=== PATIENT | female | born 1970 | race Caucasian/White ===

== ENCOUNTER 2025-02-16 14:33 | Emergency (ER) | payer OTHER, SELFPAY ==
--- OUTSIDE RECORDS SUMMARY | 2025-02-16 14:40 | XMS_ITS | Clinical Summary ---
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 Active Diphenhydramine-AP AP, sleep, (TYLENOL PM EXTRA STRENGTH PO) Take by mouth nightly as needed. Active predniSONE (DELTASONE) 20 MG Tablet Take 1 tablet daily for 5 days then taper the dose to half tablet for 5 days, then half a tablet every other day until finish the prescription. 20 Tab 0 04/07/19 17 Active Additional Information Patient not taking.Reported on 01/05/2017 guaiFENesin-codein e (CHERATUSSIN AC) 100-10 MG/5ML Syrup Take 5 mL by mouth nightly as needed for Cough. 120 mL 0 04/07/19 17 Active Additional Information Patient not taking.Reported on 01/05/2017 guaiFENesin (MUCINEX) 600 MG TABLET SR 12 HRIndications:Acut e non-recurrent sinusitis, unspecified location Take 1 Tab by mouth 2 times daily. 180 Tab 3 05/19/19 17 Active Additional Information Patient not taking.Reported on 01/05/2017 fluticasone-salmet aramis (ADVAIR DISKUS) 250-50 MCG/DOSE AEROSOL POWDER, BREATH ACTIVATED take 1 Puff by inhalation 2 times daily. 60 Each 04/13/20 18 Active atorvastatin (LIPITOR) 20 MG TabletIndications: Mixed hyperlipidemia Take 1 Tab by mouth daily. 90 Tab 07/09/19 18 Active montelukast (SINGULAIR) 10 MG TabletIndications: Bronchitis with asthma, acute Take 1 Tab by mouth daily. 90 Tab 07/09/19 18 Active albuterol (PROAIR HFA) 108 (90 Base) MCG/ACT Aerosol SolutionIndication s:Mild persistent asthma without complication take 2 Puffs by inhalation every 4 hours as needed for Wheezing. 1 Inhaler 07/09/19 Active methylPREDNISolone (MEDROL DOSPACK) 4 MG Tablet Therapy Pack Follow instructions on pack, take with food; Give one pack 1 Dose Pack 07/09/19 Active promethazine-dextr omethorphan (PROMETHAZINE-DM) 6.25-15 MG/5ML Syrup Take 5 mL by mouth every 4 hours as needed for Cough. 240 mL 07/09/19 Active Active Problems Problem Noted Date Diagnosed Date Asthma Immunizations Immunization Administration Dates Next Due Influenza Vaccine, Quadrivalent, PF 01/05/2017 Pneumococcal Vaccine Adult - 23 Valent 7 Social History Tobacco Use Types Packs/Day Years Used Date Smoking Tobacco: Former Cigarettes 1 Q uit: 10/26/2016 E-Vapor with Nicotine Smokeless Tobacco: Never Tobacco Cessation:Counseling Given: Yes Alcohol Use Standard Drinks/Week Comments No 0 (1 standard drink = 0.6 oz pur e alcohol) Sexually Active Control Partners Comments Not Currently Comments No Sex and Gender Information Value Date Recorded Sex Assigned at Not on file Legal Sex Female 4:44 PM [employer] Gender Identity Not on file Sexual Orientation Not on file Last Filed Vital Signs Vital Sign Reading Time Taken Comments Blood Pressure 137/82 02/12/2023 12:50 AM [employer] Pulse 88 02/12/2023 12:50 AM [employer] Temperature 36.6 C (97.9 F) 02/12/2023 12:50 AM [employer] Respiratory Rate 16 02/12/2023 12:50 AM [employer] Oxygen Saturation 95% 02/12/2023 12:50 AM [employer] Inhaled Oxygen Concentration - - Weight 113.4 kg (250 lb) 02/11/2023 11:23 PM [employer] Height 162.6 cm (5' 4) 02/11/2023 11:23 PM [employer] Body Mass Index 42.91 02/11/2023 11:23 PM [employer] Plan of Treatment Health Maintenance Due Date Last Done Comments Hepatitis C Virus (HCV) Screening 1968 Varicella Immunization (1 of 2 - 13+ 2-dose series) 1981 Hepatitis B Immunization (1 of 3 - 19+ 3-dose series) 10/10/1987 Pap Smear 1989 Cervical Cancer Screening (CCS) 1998 HPV/Cotest 1998 Cologuard 2013 Colonoscopy 2013 Colorectal Cancer Screening 2013 Immunochemical Fecal Occult Blood 2013 Pneumococcal Immunization (5 0+ years) (2 of 2 - PCV) 01/05/2018 01/05/2017 Respiratory Syncytial Virus (RSV) Immunization (Adult) (1 - Risk 50-74 years 1-dose series) 2018 Zoster Immunization (1 of 2) 2018 Influenza Immunization (#1) 11/26/202412/26, 02/13/2015 SARS-COV-2 Immunization ( - season) 2024 Mammogram Discontinued 09/12/2014 TdaP Immunization Completed 02/13/2015 Pneumococcal Immunization Combined Discontinued 01/05/2017 Human Papillomavirus (HPV) Immunization Aged Out No longer eligible based on patient's age to complete this topic Meningococcal Immunization (ACWY) Aged Out No longer eligible based on patient's age to complete this topic Rotavirus Immunization Aged Out No lo nger eligible based on patient's age to complete this topic Procedures Procedure Name Priority Date/Time Associated Diagnosis Comments NATALIE SCREENING BILATERAL DIGI OLAYINKA W CAD Routine 09/12/2014 from Last 3 Months or Most Recently Relevant to Health Maintenance Results * NATALIE SCREENING BILATERAL DIGITAL W CAD (09/12/2014) Anatomical Region Laterality Modality breast Bilateral Other us Unknown Provider IMG MAMMO ORDERABLES Final Resu lt from Last 3 Months or Most Recently Relevant to Health Maintenance Insurance [employer] Care Teams [employer] Commanding Officer Relationship Specialty Start Date End Date Provider, None [place] PCP - General 09/11/20
--- OUTSIDE RECORDS SUMMARY | 2025-02-16 14:40 | XMS_ITS | Data Portability ---
[facility] Address [address] [place] [address] Assessment No assessment recorded. Plan of Treatment Reminders Order Date Submit Date Provider Last Modified By Organization Details Last Modified Time Details Appointments None recorded. 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-PCR, respiratory specimen - [place] @ 1p 2019 020 [facility] (Lab), [address] [place], [address], 0 16:17:35 test, urine 2018 019 [email or web address] 23 In-Office Order, Internal Use Only DO Not Attach Compendium DO Not Attach Compendium, Do Not Delete/merge, [id number] 9 09:20:34 pap, LB + HPV mRNA E6/E7 + reflex HPV (16+18+45) 2018 019 [email or web address] 23 [facility], [address], [place], [address], 9 10:02:27 test, urine 2018 019 [email or web address] 23 In-Office Order, Internal Use Only DO Not Attach Compendium DO Not Attach Compendium, Do Not Delete/merge, [id number] 9 12:34:51 rapid strep group A, throat 2015 016 dbogue In-Office Order, Internal Use Only DO Not Attach Compendium DO Not Attach Compendium, Do Not Delete/merge, [id number] 6 09:54:44 Referral gastroenter ologist referral 2018 019 john Manley MD, [address] [facility] [address], [place], [address], 0 11:15:09 Procedures None recorded. Surgeries None recorded. Imaging MAMMO, screening, digital, bilateral 2018 019 earnest 23 [facility] (Radiology), [address] [facility] , [place], [address], 9 10:02:27 Medication Orders Mirena 21 mcg/24 hr (up to 8 years) 52 mg intrauterin e device 2018 019 earnest 23 [facility], [address] [place], [address], 9 09:20:34 Medrol (Santo) 4 mg tablets in a dose pack 2015 016 [email or web address] 7 [facility], [address] [place], [address], 9 09:06:51 ProAir HFA 90 mcg/actuati on aerosol inhaler 2015 016 dbogue [facility], [address] [place], [address], 6 09:54:44 Patient TargetsNo targets recorded. Patient Instructions Encounter Date Encounter Id Patient Instructions Last Modified By Organization Details Last Modified Time 07/03/2015 [id number] upper respirator y infection (cold): care instructions dbogue Not available 07/03/2015 09:54:44 07/10/2015 [id number] bronchitis: care instructions dbogue Not available 07/10/2015 09:59:24 12/04/2018 [id number] body mass index: care instructions [email or web address] Not available 12/04/2018 10:02:17 learning about healthy weight [email or web address] Not available 12/04/2018 10:02:17 learning about breast cancer screening [email or web address] Not available 12/04/2018 10:02:17 12/19/2018 [id number] intrauterine device (IUD) insertion: care instructions [email or web address] Not available 12/19/2018 09:20:34 11/19/2019 [id number] Reviewed the following recommendations: -Stay home and separate from others as much as possible. -Monitor your symptoms and seek medical attention for trouble breathing, persistent chest pain, confusion, or bluish lips or face. -Wear a mask if you must be around other people. -Wash your hands often for 20 seconds with soap and water and clean high-touch surfaces daily -You may discontinue home isolation if your symptoms are improving, it has been 10 days since symptoms started, and you have been fever free for at least 3 days. j [email or web address] Not available 11/19/2019 12:33:10 Reason for Referral Sample Box Maker Referral for Screening for malignant neoplasm of colon Referring Physician: Iris Cordero, PROCESS DEVELOPMENT TECHNICIAN, Encounter Date: 12/04/2018 Results Created Date Observation Date Name Description Value Unit Range Abnormal Flag Note LastModifiedBy Organization Detail LastModifiedTime 07/03/19 16 07/03/2015 rapid strep group A, throa t Strep negati ve Not Available In-Office Order Internal Use Only DO Not Attach Compendium DO Not Attach Compendium, Do Not Delete/merge, [id number] 07/03/2015 09:35:31 12/05/1912/06/2018 pap, IG + HPV mRNA E6/E7 + refle x HPV (16+1 8+45) clinical information: normal Infor matio n not provi ded Not Available [facility] [address], [place], [address], 12/06/2018 15:43:35 12/05/1912/06/2018 pap, IG + HPV mRNA E6/E7 + refle x HPV (16+1 8+45) LMP: normal INFOR MATIO N NOT PROVI DED Not Available [facility] [address] [place], [address], 12/06/2018 15:43:35 12/05/19 19 12/06/2018 pap, IG + HPV mRNA E6/E7 + refle x HPV (16+1 8+45) prev. Pap: normal INFOR MATIO N NOT PROVI DED Not Available [address] [place], [address], 12/06/2018 15:43:35 12/05/19 19 12/06/2018 pap, IG + HPV mRNA E6/E7 + refle x HPV (16+1 8+45) prev. BX: normal INFOR MATIO N NOT PROVI DED Not Available [facility] [address] [place], [address], 12/06/2018 15:43:35 12/05/1912/06/2018 pap, IG + HPV mRNA E6/E7 + refle x HPV (16+1 8+45) source: normal Infor matio n not provi ded Not Available [address], [place], [address], 12/06/2018 15:43:35 12/05/1912/06/2018 pap, IG + HPV mRNA E6/E7 + refle x HPV (16+1 8+45) statement of adequacy: normal Satis facto ry for evalu ation . Endoc ervic al/tr ansfo rmati on zone compo nent prese nt. Age and/o r menst rual statu s not provi ded Not Available [address], [place], [address], 12/06/2018 15:43:35 12/05/1912/06/2018 pap, IG + HPV mRNA E6/E7 + refle x HPV (16+1 8+45) interpretati on/result: normal Negat rama for intra epith elial lesio n or murtaza damico . Not Available [address] [address] [place], [address], 12/06/2018 15:43:35 12/05/1912/06/2018 pap, IG + HPV mRNA E6/E7 + refle x HPV (16+1 8+45) comment: normal This Pap test has been evalu ated with [employer] . Not Available [address] [address] [place], [address], 12/06/2018 15:43:35 12/05/19 19 12/06/2018 pap, IG + HPV mRNA E6/E7 + refle x HPV (16+1 8+45) cytotechnolo gist: normal YQ, CT( CP) CT scree tabatha locat ion: [address] [address] [place] [address] Not Available [address] [address] [place], [address], 12/06/2018 15:43:35 12/05/1912/06/2018 pap, IG + HPV mRNA E6/E7 + refle x HPV (16+1 8+45) comment EXPLA NATADAN Y NOTE: The Pap is a scree tabatha test for cervi jenni cance r. It is not a diagn ostic test and is subje ct to false negat rama and false posit rama resul ts. It is most relia ble when a satis facto ry sampl e, regul kimmy obtai renée, is submi tted with relev ant clini jenni findi ngs and histo ry, and when the Pap resul t is evalu ated along with histo sary and curre nt clini jenni infor matio n. Not Available [address] [address] [place], [address], 12/06/2018 15:43:35 12/05/1912/06/2018 pap, IG + HPV mRNA E6/E7 + refle x HPV (16+1 8+45) HPV MRNA E6/E7 Not Detect ed not detect ed normal This test was perfo rmed using the APTIM A HPV Assay ([employer] . This assay detec ts E6/E7 viral messe nger RNA (mRNA ) from 14 high- risk HPV types (16,1 8,31, 33,35 ,39,4 5,51, 52,56 ,58,5 9,66, 68). The sandar tical perfo rmanc e karmen cteri stics of this assay have been deter mined by [employer]. The modif icati ons have not been clear ed or appro krystyna by the FDA. This assay has been valid ated pursu ant to the CLIA regul ation s and is used for clini jenni purpo ses. Not Available [facility] [address] [place], [address], 12/06/2018 15:43:35 12/05/19 19 12/04/2018 pregn gladys test, urine HCG negati ve Not Available In-Office Order Internal Use Only DO Not Attach Compendium DO Not Attach Compendium, Do Not Delete/merge, [id number] 12/04/2018 10:10:38 12/20/19 19 12/19/2018 pregn gladys test, urine HCG negati ve Not Available In-Office Order Internal Use Only DO Not Attach Compendium DO Not Attach Compendium, Do Not Delete/merge, [id number] 12/19/2018 08:58:17 11/19/19 20 11/19/2019 SARS CoV 2 RNA (COVI D-19) , QL, surgical supply assistant-P CR, respi rator y speci men sars - cov - 2 PCR NON DETECT ED mL Not Available [facility] (Lab) [address] [place] [address], [address], 11/23/2019 16:17:35 11/19/19 20 11/19/2019 SARS CoV 2 RNA (COVI D-19) , QL, surgical supply assistant-P CR, respi rator y speci men [email or web address] COMME NTS: A negat rama resul t does not precl ude SARS- CoV-2 infec tion and shoul d not be used as the sole basis for treat ment or other patie nt manag ement decis ions. Negat rama resul ts must be combi renée with clini jenni obser vatio ns, patie nt histo ry, and epide miolo gical infor matio n Perfo rmanc e karmen cteri stics for the TaqPa th COVID -19 Combo , Real- time PCR Diagn ostic test have been deter mined by the [facility] daniel magdaleno and are incor porat ed as part of the Emerg ency Use Autho pedrito ion. Not Available [facility] (Lab) [address] [place], [address], 11/23/2019 16:17:35 11/19/19 20 11/19/2019 SARS CoV 2 RNA (COVI D-19) , QL, surgical supply assistant-P CR, respi rator y speci men covididph3 Provi marianne and patie nt fact sheet s are avail able at: https ://ww w.fda .gov/ medic al-de vices /samantha gency -situ ation s-med ical- devi es/em ergen cy-us e-aut horiz ation s#cor onavi rus20 19 Not Available [facility] (Lab) [address] [facility], [place], [address], 11/23/2019 16:17:35 11/19/19 20 11/19/2019 SARS CoV 2 RNA (COVI D-19) , QL, surgical supply assistant-P CR, respi rator y speci men covididph4 Perfo rmed at: [facility] atori es [address] [place] [address] [phone] CLIA No. [id number] Not Available [facility] (Lab) [address] [place], [address], 11/23/2019 16:17:35 07/10/19 16 07/06/2015 imagi ng/di agnos tic resul t No observ ation record ed. dbogue Not Available 2015 14:09:03 12/08/19 19 11/09/2004 MAMMO , scree tabatha, digit al, bilat eral No observ ation record ed. [email or web address] Not Available 2018 09:10:47 Result Notes None recorded. Problems Name Problem SNOMED Code Status Onset Date Resolution Date Notes Provider Name and Address Organization Details Recorded Time Tobacco user 791063416 Active Radha [place], [place] - [facility] 5 14:47:42 Morbid obesity 837079499 Active Oneil Bar[place] null[place] - [facility] 5 14:47:42 Elevated blood-pressure reading without diagnosis of hypertension 355682892 Sonja Bar[place] - [facility] 5 14:47:42 Asthma 245175764 Active Radha [place] [facility] 6 14:13:04 Anxiety 06653158 Active Radha [place] [facility] 5 13:58:41 Dizziness 226233626 Active Radha [place] [facility] 5 13:58:41 Insomnia 041754519 Sonja [place] [facility] 5 13:58:41 Hyperlipidemia 42926342 Sonja [place] [facility] 5 11:41:34 Hyperglycemia 44482535 Active Radha [place] [facility] 5 11:41:34 Bronchitis 39156752 Active Radha [place] [facility] 6 09:59:24 Pharyngitis 315624475 Active Radha [place] [facility] 6 09:54:43 Upper respiratory infection 80169755 Active Radha [place] [facility] 6 09:54:43 Problem Notes None recorded. Procedures Surgical History Date Name Laterality Status Provider Name and Address Organization Details Recorded Time 9 IUD Insertion completed Iris Cordero [place] - [facility] 12/19/2018 09:19:17 9 Date of Last Pap Smear completed Fran Reese RN [place] - [facility] 12/06/2018 15:50:16 6 Nebulizer tx completed Radha Anderson [place] - [facility] 07/10/2015 09:59:00 Imaging Results None recorded. Procedure Notes None recorded. Medical Equipment None Reported. Allergies Allergen ID Allergen Name Allergen Category Reaction Reaction Severity Criticality Documentation Date Start Date Code Code System Note Provider Name and Address Organization Details Recorded Time 96571 Product containin g penicilli n (product) medicatio n Not available Not available Not available 02/13/2015 33139 8001 SNOMED MICHELLE Strange, [facility] 5 14:12:24 81059 azithromy rhona medicatio n hives moderate Not available 07/10/2015 41062 RxNorm Radha Barron maru, [facility] 6 09:39:49 Medications Name Sig Start Date Stop Date Status Note LastModified by Organization Details LastModified Time Mirena 21 mcg/24 hr (up to 8 years) 52 mg intrauterin e device Take 1 device by intrauter ine route. 2018 active Not Available Not Available Not Avai lable atorvastati n 20 mg tablet active Not Available Not Available Not Available citalopram 10 mg tablet Take 1 tablet every day by oral route. 02/24 completed Not Available Not Available Not Available prednisone 20 mg tablet active Not Available Not Available Not Available ciprofloxac in 500 mg tablet 12/04 completed Not Available Not Available Not Available amitriptyli ne 25 mg tablet Take 1 tablet every day by oral route. 12/04 completed Not Available Not Available Not Available benzonatate 100 mg capsule 12/04 completed Not Available Not Available Not Available cephalexin 500 mg capsule active Not Available Not Available Not Available Advair Diskus 250 mcg-50 mcg/dose powder for inhalation Inhale 1 puff twice a day by inhalatio n route for 30 days. 12/04 completed Not Available Not Available Not Available montelukast 10 mg tablet active Not Available Not Available Not Available cefuroxime axetil 500 mg tablet 07/02 completed Not Available Not Available Not Available lovastatin 20 mg tablet Take 1 tablet(s) EVERY NIGHT by oral route. 12/04 completed Not Available Not Available Not Available methylpredn isolone 4 mg tablets in a dose pack Take by oral route as directed 12/04 completed Not Available Not Available Not Available albuterol sulfate HFA 90 mcg/actuati on aerosol inhaler INHALE TWO PUFFS BY MOUTH EVERY 4 HOURS NEEDED active Not Available Not Available No t Available norethindro ne (contracept rama) 0.35 mg tablet active Not Available Not Available No t Available cefdinir 300 mg capsule Take 1 capsule every 12 hours by oral route for 10 days. 07/02 completed Not Available Not Available Not Available naproxen 500 mg tablet active Not Available Not Available Not Available Vitals Date Recorded Body mass index (BMI) Body temperature Body height Heart rate Body weight Oxygen saturation Systolic And Diastolic Provider Name and Address Organization Details Last Updated DateTime 6 41.3 kg/m2 97.8 [degF] 170.18 cm 104 /min 421119. 473750 g 99 % 130/80 mm[Hg] [facility] 09:29:37 Date Recorded Systolic And Diastolic Provider Name and Address Organization Details Last Updated DateTime 07/10/2015 130/88 mm[Hg] Radha Anderson [facility] 016 11:07:26 Date Recorded Respiratory rate Body height Body mass index (BMI) Heart rate Body weight Body temperature Oxygen saturation Provider Name and Address Organization Details Last Updated DateTime 6 12 /min 170.18 cm 40.3 kg/m2 92 /min 057534. 456121 g 97.9 [degF] 97 % [facility] [place] 6 09:31:48 Date Recorded Body weight Systolic And Diastolic Provider Name and Address Organization Details Last Updated DateTime 12/04/2018 822680.05 g 114/78 mm[Hg] Fran Reese RN [facility] 12/04/2018 09:17:39 Date Recorded Body height Body mass index (BMI) Body weight Systolic And Diastolic Provider Name and Address Organization Details Last Updated DateTime 12/19/2018 170.18 cm 39.7 kg/m2 355059.67 g 160/90 mm[Hg] Albertina Camarena [facility] 12/19/2018 08:50:12 Social History Question Answer Notes LastModified by Organizat ion Details LastModified Time Tobacco Smoking Status Current Every Day Smoker Fran Reese RN [facility], [facility] 12/04/2018 09:11:45 Do You Have An Advance Directive? No Information not available 12/04/2018 What Is Your Level Of Caffeine Consumption? Moderate [email or web address] Information not available 02/13/2015 How Much Tobacco Do You Chew? None [email or web address] Information not available 12/04/2018 What Type Of Diet Are You Following? REGULAR Information not available 02/13/2015 Which Illicit Or Recreational Drugs Have You Used? Denies [email or web address] Information not available 12/04/2018 Education 2 Year College [email or web address] Information not available 12/04/2018 Marital Status Single [email or web address] Informatio n not available 12/04/2018 Performs Monthly Self-breast Exam? Yes [email or web address] Information no t available 12/04/2018 Seat Belts Used Routinely Yes [email or web address] Information not available 12/04/2018 How Much Tobacco Do You Smoke? 0.25 PPD [email or web address] Information not available 12/04/2018 General Stress Level Medium [email or web address] Information not available 12/04/2018 Do You Use Sunscreen Routinely? No Information not available 12/04/2018 How Many Years Have You Smoked Tobacco? 33 Information not available 12/04/2018 Sex: Female Functional Status Question Answer Note LastModified by Organizat ion Details LastModified Time What is your level of alcohol consumption? Occasional [email or web address] Information not available 02/13/2015 Do you or have you ever used smokeless tobacco? 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 Current user of electronic cigarettes Information not available 12/04/2018 What is your exercise level? Occasional [email or web address] Information not available 12/04/2018 Mental Status None recorded. Family History Relationship Description Onset Age of this Age Resolved Age Notes LastModified by Organization Details LastModified Time Mother Asthma [email or web address] Not available 02/13/2015 14:12:24 Mother Carcinoma in situ of breast unknow n age, unsure dx [email or web address] Not available 12/04/2018 09:34:44 Mother Heart disease 51 [email or web address] Not available 11/2018 09:34:54 Mother Myocardial infarction Not available 02/13 14:12:24 Father Heart disease [email or web address] Not available 2014 14:12:24 Father Migraine [email or web address] Not availabl e 02/13/2015 14:12:24 Father Myocardial infarction [email or web address] Not available 02/13 14:12:24 Sister Asthma [email or web address] Not available 02/13/2015 14:12:24 Medical History Condition Response Coronary Artery Disease N Other N Atrial Fibrillation N High Blood Pressure N Depression Y COPD N Blood Clots N Anxiety Disorder N Muscle, Joint, or Bone Problems N Acid Reflux (GERD) N Cancer N Stroke N High Cholesterol N Liver Disease N Headaches N Kidney or Bladder Problems N Thyroid Problems N GI Problems N Skin Problems N Anemia N Heart Attack (ID) N Diabetes N Seizures/Epilepsy N Asthma Y Allergies Y Hepatitis N Osteoporosis N Heart Failure N Gynecological History Statement/Question Response Abnormal Pap N Flow Light STIs/STDs N HPV Vaccine N Duration of Flow (days) 3 Most Recent Mammogram Age at Menarche 13 Current Control Method IUD Frequency of Cycle (Q days) 30 Sexually Active? Y Menses Monthly Y Date of Last Pap Smear 12/04/2018 Sexual Problems? N LMP Approximate Desired Control Method Unknown Obstetrics History GPAL:G 2 P 1 0 1 1 Type Value Multiple Births 0 Full Term 1 Induced 1 Spontaneous 0 Premature 0 Living 1 Ectopics 0 Total 2 Immunizations Vaccine Type Date Status Note Provider Nam e and Address Organization Details Recorded Time Tdap 5 completed Not Available [facility] 04/14/2019 02:29:59 Influenza, split virus, quadrivalent, preservative 5 completed Not Available [facility] 04/14/2019 02:32:11 Past Encounters Encounter ID Performer Location Encounter Start Date Encounter Closed Date Diagnosis/Indication Diagnosis SNOMED-CT Code Diagnosis ICD10 Code Diagnosis IMO Codes Diagnosis Note [id number] MD Leanna Caal (Adult Med) [address] [place] [address] 02/13/2015 14:02:04 02/13/2015 14:56:30 Adult health examination 869915111 Z00.01 Encourage well balanced meals, active lifestyle and routine vision/den krystal/feather baler apts. Tobacco user 718580937 Z 72.0 Quit smoking cigs 1 month ago. Using 6 mg vapor cig. Continue cessation. Morbid obesity 294716385 E66.01 Diet and exercise. < 1800 jenni daily. No soda or sweets. Active or passive immunization 008962091 Z23 flu shot today tdap today Elevated blood-pressure reading without diagnosis of hypertension 003616468 R03.0 < 2 gm sodium diet. Exercise and reduce weight. Asthma 701687989 J45.20 Albuterol inhaler ERX. No wheezing today. Anxiety 15196459 F41.1 Will start citalopram 10 mg daily. FU 1 month. [id number] JANICE Traylorhalto (Adult Med) [address] [place] [address] 02/24/2015 11:59:38 02/24/2015 17:52:57 Anxiety 31266782 F41.1 Stop citalopram as it was making anxiety increase. Will work on coping techniques . Dizziness 863198347 R42 Drink pleanty of water. Change position slowly. Well balanced meals. Get labs done. Insomnia 823148725 F51.0 9 Will try patient on amitriptyl ine 25 mg nightly. Follow up 2-4 weeks for follow up. [id number] JANICE Traylorhalto (Adult Med) [address] [facility] [place] [address] 02/26/2015 09:34:44 03/11/2015 16:22:56 [id number] JANICE Traylorhalto (Adult Med) [address] [place] [address] 05/09/2015 09:26:03 05/09/2015 16:37:52 Asthma 013114258 J45.20 Albuterol inhaler and advair diskus ERX. No wheezing today. Medrol dose santo. Patient made aware that she needs to keep us informed of need for medication . If she has requested medication and hadsn't received refill within 2 days, call our office or else we have no way of knowing medication needed. Bronchitis 36625808 J40 Likely viral. Due to fevers, chills, sweats, sent for cefdinir to be used only if worsening of symptoms- then start on Tuesday (2 days from now). [id number] JANICE Traylor (Adult Med) [address] [place] [address] 07/03/2015 09:20:18 07/03/2015 10:45:55 Pharyngitis 636961699 J02.9 Warm salt water gargle QID. Rss -. Upper resp iratory infection 01985246 J06.9 Patient encouraged to exercise, use inhaler prior to activity. Continue advair. [id number] [facility] [address] [place] [address] 07/10/2015 09:17:51 07/10/2015 14:20:40 Bronchitis 21151160 J40 Continue cipro, benzonatat e prn. 2nd round medrol dose santo sent. Continue advair and albuterol. Can use otc mucinex to loosen secretions in chest. [id number] [facility]PROCESS DEVELOPMENT TECHNICIAN) [address] [place] [address] 12/04/2018 08:47:02 12/08/2018 12:26:50 Gynecologic examination 47589247 Z01.411 No result available for last pap. Pap done. Screening for malignant neoplasm of breast 893819935 Z12.31 Screening for malignant neoplasm of colon 390539623 Z12.11 Contracept ion care management 504104640 Z30.9 control options discussed. Pt. wants the Mirena IUD. Benefits, risks, and alternativ es to Mirena IUD insertion d/w pt. Pt. expressed understand ing. All pt. questions answered. UPT was negative today. RTO 2 weeks for repeat UPT and MIrena IUD insertion. Body mass index 40+ - severely obese 768151781 Z68.41 Nutrition and exercise discussed. Cigarette smoker 4486850 7 F17.210 Cesation discussed. [id number] MD [facility] (PROCESS DEVELOPMENT TECHNICIAN) [address] [place] [address] 12/19/2018 08:37:30 12/20/2018 11:42:28 Insertion of intrauterine contraceptive device 29555192 Z30.430 Benefits, risks, and alternativ es to Mirena IUD insertion d/w pt. Pt. expressed understand ing. All pt. questions answered. Consent signed and in chart. UPT was negative two weeks ago and today. Mirena IUD was inserted per protocol and without difficulty . Please see procedure note for details. Pt. tolerated the procedure well. RTO 2 mo. for string check. [id number] RAAD Sparks [address]ol[address] [place] [address] 11/19/2019 09:54:24 11/20/2019 07:26:57 Suspected COVID-19 899586548 Z03.818 Health Concerns Section Related Observation LastModified by Organization Detai ls LastModified Time None Recorded Concern Status LastModified by Organization Details LastModified Time None Recorded Advance Directives Directive N: Payers Insurance Date Sequence Insurance Name Policy Number Policy Sarkar Covered Member ID Sarkar Member ID Guarantor Name 07/06/2020 1 [employer] [id number] Cece Plasencia [id number] Cecemars Lomelis 11/19/2019 1 [employer] (POS) [id number] Cece Plasencia [id number] Cecemars Plasencia 12/04/2018 1 [employer] [id number] Cece Plasencia [id number] Cecemars Lomelis Notes Date Note Type Note Provider Name and Address Organization Details Recorded Time 6 text/html Throat PainReported by PatientHPIFor location, patient reportslevel of pain back of mouth. For quality, patient reportsburning. For severity, patient reportsmild. For onset/timing, patient reportsabrupt. For duration, (2 days ago).2 days of sore throat, fever. Throat wetzel. Has been trying honey and lemon tea. Using tylenol/motrin. No rashes. Has been having posterior draining.ROS as noted in the HPI Using albuterol inhaler 4 x daily for past 4-6 weeks. Was on ANTibiotics. Using inhaler one every 15-20 days. Radha Barron [facility] [place] [facility] 07/03/2015 09:54:54 6 text/html 07/06/15 started mucinex and zyrtec. Continued to get congested and sob with walking. Went to [facility] and couldn't walk around. Tuesday 1200 noon went to urgent care due to wheezing. Was using albuterol inhaler every hour. Using child nebulizer with albuterol with minimal relief. Diagnosed with Acute bronchitis and sinusitis. Chest xray- normal. Given cipro 500 mg bid for 10 days, benzonatate TID, and medrol dose santo. Feeling better today, but not Well. Lays down and coughs. Coughs up 'new snot'. Doesn't feel like she is taking deep breath. Coughing in spurts. No fever or chills. -Coughing so much she gets dizzy. Also gets dizzy for the first few seconds after using albuterol inhaler. Radha Anderson mahoney [facility] 07/10/2015 11:09:05 9 text/html Annual GYNReported by PatientGenitourinary symptomsFor menstrual cycle, patient reportsnormal menses. For urinary symptoms, patient reportsno hematuriaandno incontinence. For vulva, patient reportsno genital lesion. For vagina, patient reportsnormal vaginal discharge.Breast symptomsFor breast, patient reportsno breast pain,no breast lump, andno nipple discharge.ContraceptionFo r current contraception, patient reportswants to discuss contraceptive options.Endocrine symptomsFor sexual complaints, patient reportsno sexual complaints,no pain during intercourse, andnormal libido. For menopausal symptoms, patient reportsno menopausal symptomsandnormal vaginal lubrication.Psychological symptomsFor psychological symptoms, patient reportsno depression,no anxiety, andno pmdd.Preventative measuresFor preventive measures, patient reportsencourage self breast examination,encourage regular exercise,encourage no tobacco use,encourage regular mammograms starting age 40,needs to schedule mammogram, andneeds to schedule colonoscopy. Iris Cruzsaloni mahoney [facility] 12/07/2018 15:56:32 9 text/html ROS as noted in the HPI Pt. presents for Mirena IUD insertion. She had a negative UPT 2 weeks ago. She has no complaints. Iris Cruzsaloni mahoney [facility] 12/19/2018 09:20:04 0 text/html COVID-19 Symptoms July 2019Reported by PatientUpper Respiratory SymptomsFor covid-19 signs and symptoms, patient reportsnew loss of taste or smellbut reportssore throat sameandvomiting or diarrhea same. COVID ScreeningReported by PatientHPIFor onset/duration of fever, patient reportsfeverbut reportswhen did fever first occur? (11/17)andhighest fever 101.ROS as noted in the HPI symptoms started LA NENA LOGAN NP Attn: Accounting,[address] [facility], [place], [id number], [facility] 11/19/2019 12:34:12 OBGyn Episode Ob Episode Information Episode Created Date Number of Fetuses Patient Bloodtype Patient rh Status Prepregnancy Weight lbs Domestic Partner Domestic Partner Phone Father Name Application Consultant Status 12/05/19 19 1 CLOSED Fetus Data First Name Last Name Admitted to NICU Weight (g) Sex Living Outcome Pediatric Complications Fetus ID Race Codes Race Delivery Type , Induced [id number] Ayaan Calculation Initial Ayaan Date Initial Exam Date Initial Exam Provider Initial Ultrasound Date Last Menstrual Period Date Ultra Sound Weeks Gestation 0 Eighteen To Twenty Week Ayaan Update Ultra Sound Date Fundal Height At Umbil Quickening Date Ultra Sound Latest Weeks Gestation Final Ayaan Confirmed By Final Ayaan Confirmed Date Final Ayaan Date Ultra Sound Latest Days Gestation 0 0 Menstrual History Last Menstrual Date Menses Monthly On Bcp Conception Prior Menses Frequency Hcg Plus Date Menarche Onset Age Delivery Information Delivery Date Delivery Type Labor Anesthesia Weeks Gestation Incision Type Labor Labor Length Hrs Delivered By Post Complications Tubal Sterilization Discharge Date Comments 4 6 weeks Discharge Information Feeding Method Contraceptive Method Maternal HG B and HCT Levels Ob Episode Information Episode Created Date Number of Fetuses Patient Bloodtype Patient rh Status Prepregnancy Weight lbs Domestic Partner Domestic Partner Phone Father Name Application Consultant Status 12/05/19 19 1 CLOSED Fetus Data First Name Last Name Admitted to NICU Weight (g) Sex Living Outcome Pediatric Complications Fetus ID Race Codes Race Delivery Type F Full Term [id number] Vaginal Ayaan Calculation Initial Ayaan Date Initial Exam Date Initial Exam Provider Initial Ultrasound Date Last Menstrual Period Date Ultra Sound Weeks Gestation 0 Eighteen To Twenty Week Ayaan Update Ultra Sound Date Fundal Height At Umbil Quickening Date Ultra Sound Latest Weeks Gestation Final Ayaan Confirmed By Final Ayaan Confirmed Date Final Ayaan Date Ultra Sound Latest Days Gestation 0 0 Menstrual History Last Menstrual Date Menses Monthly On Bcp Conception Prior Menses Frequency Hcg Plus Date Menarche Onset Age Delivery Information Delivery Date Delivery Type Labor Anesthesia Weeks Gestation Incision Type Labor Labor Length Hrs Delivered By Post Complications Tubal Sterilization Discharge Date Comments 8 Regional- idural 39 Discharge Information Feeding Method Contraceptive Method Maternal HG B and HCT Levels
[2025-02-16 14:41] VITALS: BP 143/85; PULSE 84; RESP 16; TEMP 36.8; O2SAT 98
--- NOTE | 2025-02-16 15:04 | ED.SKABFB ---
HPI - Skin/Abscess/Foreign Bdy General Chief complaint: Skin/Abscess/Foreign Body Stated complaint: Insect Bite Time Seen by Provider: 02/16/25 15:04 Source: patient, RN notes reviewed and old records reviewed Mode of arrival: ambulatory Limitations: no limitations History of Present Illness HPI narrative: 54 year old female who presents to [facility] care with complaints of being stung by a hornet on the back of her left lower leg on the 14th of this month and has continued redness itching and discomfort to area. Patient has red area to the posterior left lower leg which measure 8cm X3.5 cm that is red, warm and itchy with no pustules or vesicles or drainage noted. Patient has been applying hydrocortisone cream, Benadryl ointment and taking oral Benadryl for her symptoms. MD complaint: insect bite/sting and other (cellulitis) Onset (ago): day(s) (8 days) Location: LLE (posterior left lower leg) Severity: moderate Quality: aching, pruritic and other (soreness) Treatments prior to arrival: OTC topical medication and Benadryl Related Data Home Medications ?Medication ?Instructions ?Recorded ?Confirmed ?Last Taken ?Type albuterol sulfate 90 mcg/actuation inhalation 02/16/25 Unknown History aerosol inhaler cyclobenzaprine 10 mg tablet mg 02/16/25 Unknown History fluticasone fur. 100 mcg-umeclid inhalation 02/16/25 Unknown History 62.5 mcg-vilant 25 mcg inhalat.powder (Trelegy Ellipta) Allergies Allergy/AdvReac Type Severity Reaction Status Date / Time bee venom protein (honey bee) Allergy Severe Anaphylaxis Verified 02/16/25 14:53 azithromycin Allergy Intermediate Hives Verified 02/16/25 14:53 Penicillins Allergy Intermediate Hives Verified 02/16/25 14:53 Review of Systems Review of Systems: CONSTITUTIONAL: Denies fever, chills, or sweats. CARDIOVASCULAR: Denies chest pain, palpitations, or edema. RESPIRATORY: Denies cough or dyspnea. GASTROINTESTINAL: Denies abdominal pain, nausea, vomiting SKIN: Reports redness and swelling to posterior left lower leg. Denies purulent drainage, vesicles, bullae, numbness, pain beyond proportion MUSCULOSKELETAL: Denies myalgia. NEUROLOGIC: Denies headache, numbness All systems reviewed & are unremarkable except as noted in HPI and below PMFSH Past Medical History Medical History Asthma Family History Family History Grandparent Cerebrovascular accident Family history of type 2 diabetes mellitus Family history of heart disease in male family member before age 55 Mother Family history of malignant neoplasm of breast in first degree relative Family history of heart disease in male family member before age 55 Social History Social History Smoking packs per day: 1 Smoking cigarettes per day: 20.0 Years smoked: 30 Smoking pack-years: 30.00 Smoking status: Former smoker Additional smoking assessment comments: quit 2017 Alcohol intake: never Substance use type: does not use Gender identity (if verbalized by the patient): Female Comments At time of signature, agree with nursing past medical, surgical, social and family history. There is no relevant family history pertinent to the presenting complaint Exam Narrative: GENERAL: Well-appearing, well-nourished, and in no acute distress. HEAD: Normocephalic, atraumatic. EYES: PERRLA and EOMI. ENT: Nares clear, no rhinorrhea or epistaxis. Mucous membranes moist. NECK: Supple.no lymphadenopathy CHEST: Clear to auscultation. No respiratory distress.SAO2 98% on room air HEART: Regular rate and rhythm. No murmur heard. Normal peripheral pulses. ABDOMEN: Soft, nontender, nondistended, normal active bowel sounds. EXTREMITIES: Normal range of motion. No edema. SKIN: Warm, dry. Erythema, induration, tenderness, warmth to posterior left leg which measures 8cm X 3.5cm No vesicles, bullae, necrosis, ecchymosis, crepitus noted.reports soreness and itchy to area NEURO: No focal deficits. Alert and oriented x3. Course Course Emergency Course: Patient is aware of diagnosis, understands and agrees to treatment plan. Anticipatory guidance given. Patient agrees to follow-up as directed and is aware of reasons to seek care at the emergency department. Portions of this record may have been created with voice recognition software Level of Care: Express Care Visit Vital Signs Vital signs: Vital Signs Temperature 36.8 C 02/16/25 14:41 Pulse Rate 84 02/16/25 14:41 Respiratory Rate 16 02/16/25 14:41 Blood Pressure 143/85 H 02/16/25 14:41 Pulse Oximetry 98 02/16/25 14:41 Oxygen Delivery Room Air 02/16/25 14:41 Temperature 36.8 C 02/16/25 14:41 Pulse Rate 84 02/16/25 14:41 Respiratory Rate 16 02/16/25 14:41 Blood Pressure 143/85 H 02/16/25 14:41 Pulse Oximetry 98 02/16/25 14:41 Oxygen Delivery Room Air 02/16/25 14:41 Reviewed MDM - Skin/Abscess/Foreign Bdy MDM Narrative Medical decision making narrative: Does not appear at this time to be erythema multiforme, bullous, SJS, TEN; no evidence at this time to suggest RMSF, endocarditis or Lyme disease; patient looks well, nontoxic and is tolerating oral intake; no neurologic signs or symptoms; no headache, photophobia or neck pain; afebrile; appropriate for initial outpatient treatment; discussed the importance of follow-up, patient agrees. Patient does not have history of penetrating trauma, laceration, blunt trauma, recent surgery, immunosuppression, malignancy, obesity, alcoholism, corticosteroid use. Question cellulitis, necrotizing soft tissue infection, abscess. Differential Diagnosis Differential diagnosis: Likely abscess of skin or subcutaneous tissue, cellulitis, insect bites and contact dermatitis Medical Records Attestation: I reviewed the patient's medical records. Critical Care Time Critical Care Time Critical Care Time: No Discharge Plan Discharge Clinical Impression: Insect bites, Cellulitis Patient Disposition: Home Condition: Stable Instructions: Antibiotic Form, Cellulitis (ED), Insect Bite or Sting (ED) Additional Instructions: Cleanse left lower leg with liquid Dial soap rinse pat dry apply triamcinolone ointment 2 times daily never apply this to the face watch for any increasing infection--redness, swelling, drainage Tylenol or ibuprofen for any fever pain follow up with PCP in 7-10 days for a wound check recheck if develop fever, chills, increasing symptom Go to the ER if your symptoms become worse of if ANY new symptoms develop doxycycline 100 mg twice daily for 7 days take with food Medrol Dosepak take as prescribed If your symptoms persist, change or worsen significantly before you can contact your personal physician then please, without delay, go to the emergency department for further evaluation. Follow-up with PCP in 7-10 days or sooner if needed Follow up with PCP soon in regards to your blood pressure which is elevated above threshold for referral. Blood pressure above 120/80 may indicate pre-hypertension. 143/85 Patient Language: Uzbek Prescriptions: New doxycycline hyclate 100 mg tablet 100 mg PO BID Qty: 14 0RF Rx Instructions: take with food methylprednisolone [Medrol (Santo)] 4 mg tablets,dose pack See Rx Instructions .ROUTE .COMPLEX Qty: 21 0RF Rx Instructions: orally per package directions triamcinolone acetonide 0.1 % ointment 1 applic topical BID Qty: 80 0RF Rx Instructions: apply 2 times daily to red area never apply this ointment to the face No Action cyclobenzaprine 10 mg tablet albuterol sulfate 90 mcg/actuation HFA aerosol inhaler INHALATION Trelegy Ellipta 100-62.5-25 mcg blister with device INHALATION Follow-up/Referrals: Liz,Александр Brice MD [Primary Care Provider, Unknown] Time of Disposition: 15:17 Quality [place] Coma Scale Eyes: Open Verbal: Oriented and Alert Motor: Follows Commands [place] Coma Total Score: 15
== END 2025-02-16 15:30 | disposition home or self-care (01) ==
PROVIDERS: Emergency Provider Registered Nurse; PCP Internal Medicine
DX: L03.116 Cellulitis of left lower limb (principal); T63.451A Toxic effect of venom of hornets, accidental (unintentional), initial encounter; J45.909 Unspecified asthma, uncomplicated; Z87.891 Personal history of nicotine dependence
CPT/HCPCS: 99203; G0463